=== PATIENT | female | born 1950 | race Caucasian/White ===

== ENCOUNTER 2017-04-05 12:52 | Inpatient (IN) | payer BC, OTHER ==
[~2017-04-05] VITALS: Ht 162.6 cm; Wt 63.5 kg
[2017-04-05] MEDS ORDERED: CHOL100045 PO (17:41)
[2017-04-05] MEDS ORDERED: MONT10TA22 PO (17:41)
[2017-04-05] MEDS ORDERED: VENL150C58 PO (17:41)
[2017-04-05] MEDS ORDERED: OMEP40CA37 PO (17:41)
[2017-04-05] MEDS ORDERED: ASPI81TA31 PO (17:41)
[2017-04-05] MEDS ORDERED: ATOR20TA PO (17:41)
[2017-04-05] MEDS ORDERED: CHLO25CA10 PO (17:41)
[2017-04-05] MEDS ORDERED: TRIA1CAP6 PO (17:41)
[2017-04-05] MEDS ORDERED: VITA1TAB20 PO (17:41)
[2017-04-05] MEDS ORDERED: hydrALAZINE HCL 50 MG TABLET PO PRN (17:45)
[2017-04-05] MEDS ORDERED: diphenhydrAMINE 50 MG CAPSULE PO PRN (17:45)
[2017-04-05] MEDS ORDERED: ONDANSETRON ODT 4 MG TAB.RAPDIS SL PRN (17:45)
[2017-04-05] MEDS ORDERED: MAG HYDROX/AL HYDROX/SIMETH 30 ML LIQUID UDC PO PRN (17:45)
[2017-04-05] MEDS ORDERED: ONDANSETRON 4 MG/2 ML VIAL IM PRN (17:45)
[2017-04-05] MEDS ORDERED: ACETAMINOPHEN 325 MG TABLET PO PRN (17:45)
[2017-04-05] MEDS ORDERED: DICYCLOMINE HCL 20 MG TABLET PO PRN (17:45)
[2017-04-05] MEDS ORDERED: LORAZEPAM 2 MG/1 ML VIAL IM PRN (17:45)
[2017-04-05] MEDS ORDERED: CLONIDINE HCL 0.1 MG TABLET PO PRN (17:45)
[2017-04-05] MEDS ORDERED: MIRALAX 17 GM POWD.PACK PO PRN (17:45)
[2017-04-05] MEDS ORDERED: MAGNESIUM HYDROXIDE 30 ML LIQUID UDC PO PRN (17:45)
[2017-04-05] MEDS ORDERED: LORAZEPAM 1 MG TABLET PO PRN ×2 (17:45)
[2017-04-05] MEDS ORDERED: LOPERAMIDE HCL 2 MG CAPSULE PO PRN ×2 (17:45)
[2017-04-05] MEDS ORDERED: MILK175C4 PO (17:50)
[2017-04-05] MEDS ORDERED: AMLO5TAB4 PO (17:50)
[2017-04-05] MEDS ORDERED: BIFI4CAP PO (17:50)
[2017-04-05] MEDS ORDERED: CEPH500T PO (17:50)
[2017-04-05] MEDS ORDERED: THIAMINE HCL 200 MG/2 ML VIAL IM ONE (19:00)
[2017-04-05 20:15] VITALS: BP 126/82
[2017-04-05] MEDS: GABAPENTIN 300 MG CAPSULE PO SCH (20:20)
[2017-04-05] MEDS: ATORVASTATIN 20 MG TABLET PO SCH (20:20)
[2017-04-05] MEDS: IBUPROFEN 600 MG TABLET PO PRN (20:20)
[2017-04-05] MEDS: MONTELUKAST SODIUM 10 MG TABLET PO SCH (20:20)
[2017-04-05] MEDS ORDERED: LORAZEPAM 1 MG TABLET PO SCH (21:00)
[2017-04-05 21:43] LABS: *URINE HCG, QUAL NEGATIVE (NEGATIVE)
[2017-04-05 21:56] LABS: *AMPHETAMINE, URINE NEGATIVE (NEGATIVE); *BARBITURATE, URINE NEGATIVE (NEGATIVE); *CANNABINOID, URINE NEGATIVE (NEGATIVE); *COCCAINE, URINE NEGATIVE (NEGATIVE); *OPIATE, URINE NEGATIVE (NEGATIVE); *PHENCYCLIDINE SCREEN,URINE NEGATIVE (NEGATIVE)
[2017-04-05 23:23] LABS: BASOPHILS # (AUTO) 0.1 K/uL (0.0-8.0); BASOPHILS % (AUTO) 1.9 % (0.0-2.0); EOSINOPHILS # (AUTO) 0.2 K/uL (0.0-0.7); EOSINOPHILS % (AUTO) 3.5 % (0.0-7.0); HEMATOCRIT 36.3 % (31.2-41.9); HEMOGLOBIN 12.9 g/dL (10.9-14.3); LYMPHOCYTES % (AUTO) 40.8 % (20.5-51.5); MEAN CORPUSCULAR HEMOGLOBIN 32.8 uug (24.7-32.8); MEAN CORPUSCULAR HGB CONC 36 g/dL (32.3-35.6); MEAN CORPUSCULAR VOLUME 92.2 fL (75.5-95.3); MONOCYTES # (AUTO) 0.6 K/uL (2.0-10.0); MONOCYTES % (AUTO) 11.3 % (0.0-11.0); NEUTROPHILS # (AUTO) 2.1 K/uL (1.8-8.9); NEUTROPHILS % (AUTO) 42.5 % (38.5-71.5); PLATELET COUNT (AUTO) 266 K/uL (179-408); RED BLOOD CELL COUNT(AUTO) 3.93 MIL/uL (3.63-4.92)
[2017-04-05 23:40] LABS: ALANINE AMINOTRANSFERASE 31 U/L (14-59); ALKALINE PHOSPHATASE 64 U/L (50-136); AMYLASE 53 U/L (25-115); ASPARTATE AMINOTRANSFERASE 33 U/L (15-37); BILIRUBIN,TOTAL 0.5 mg/dL (0.2-1.0); CARBON DIOXIDE 31 mmol/L (21-32); CHLORIDE 92 mmol/L (98-107); CREATININE 0.7 mg/dL (0.6-1.3); GLUCOSE 117 mg/dL (74-106); MAGNESIUM 1.4 mg/dL (1.8-2.4); POTASSIUM 3.3 mmol/L (3.5-5.1); TOTAL PROTEIN, SERUM 6.9 g/dL (6.4-8.2); UREA NITROGEN, BLOOD 8 mg/dL (7-18)
[2017-04-05 23:52] LABS: THYROID STIMULATING HORMONE 2.121 mIU/mL (0.358-3.740)
[2017-04-05 23:55] LABS: ETHANOL < 3 MG/DL (0-0)
[2017-04-06 00:52] VITALS: BP 121/74
[2017-04-06 04:11] VITALS: BP 118/71
[2017-04-06 08:00] VITALS: BP 112/73
[2017-04-06] MEDS: LORAZEPAM 1 MG TABLET PO SCH ×3 (08:37→20:57)
[2017-04-06] MEDS: FOLIC ACID 1 MG TABLET PO SCH (08:37)
[2017-04-06] MEDS: GABAPENTIN 300 MG CAPSULE PO SCH ×2 (08:37→20:57)
[2017-04-06] MEDS: MULTIVITAMINS,THERAPEUTIC TABLET PO SCH (08:38)
[2017-04-06] MEDS: THIAMINE HCL 100 MG TABLET PO SCH (08:38)
[2017-04-06] MEDS: ASPIRIN 81 MG TAB.CHEW PO SCH (08:38)
[2017-04-06] MEDS: TRIAMTERENE PO SCH (08:39)
[2017-04-06] MEDS: OMEPRAZOLE 40MG PO SCH (08:39)
[2017-04-06] MEDS: HCTZ PO SCH (08:39)
[2017-04-06] MEDS: AMLODIPINE 5 MG TABLET PO SCH (08:39)
[2017-04-06] MEDS ORDERED: MAGNESIUM OXIDE 400 MG TABLET PO ONE (09:00)
[2017-04-06] MEDS ORDERED: POTASSIUM CHLORIDE 20 MEQ TAB.PRT.SR PO ONE (09:00)
[2017-04-06] MEDS ORDERED: TUBERCULIN,PURIF.PROT.DERIV. 5 TU/0.1 ML TEST ID ONE (09:00)
[2017-04-06 12:00] VITALS: BP 115/74
[2017-04-06 16:00] VITALS: BP 123/77
[2017-04-06] MEDS: VENLAFAXINE XR 150 MG CAP.SR.24H PO SCH (16:35)
[2017-04-06] MEDS: IBUPROFEN 600 MG TABLET PO PRN (16:38)
[2017-04-06 20:28] VITALS: BP 139/90
[2017-04-06] MEDS: MONTELUKAST SODIUM 10 MG TABLET PO SCH (20:57)
[2017-04-06] MEDS: ATORVASTATIN 20 MG TABLET PO SCH (20:57)
[2017-04-07] MEDS: IBUPROFEN 600 MG TABLET PO PRN ×2 (00:10→08:56)
[2017-04-07 00:53] VITALS: BP 131/81
[2017-04-07 04:42] VITALS: BP 127/74
[2017-04-07 08:00] VITALS: BP 128/78
[2017-04-07 08:06] LABS: HEPATITIS B SURFACE AG Negative (Negative)
[2017-04-07] MEDS: VENLAFAXINE XR 150 MG CAP.SR.24H PO SCH (08:55)
[2017-04-07] MEDS: GABAPENTIN 300 MG CAPSULE PO SCH ×2 (08:55→20:17)
[2017-04-07] MEDS: LORAZEPAM 1 MG TABLET PO SCH ×2 (08:55→13:05)
[2017-04-07] MEDS: HCTZ PO SCH (08:55)
[2017-04-07] MEDS: ASPIRIN 81 MG TAB.CHEW PO SCH (08:55)
[2017-04-07] MEDS: TRIAMTERENE PO SCH (08:55)
[2017-04-07] MEDS: FOLIC ACID 1 MG TABLET PO SCH (08:55)
[2017-04-07] MEDS: OMEPRAZOLE 40MG PO SCH (08:55)
[2017-04-07] MEDS: MULTIVITAMINS,THERAPEUTIC TABLET PO SCH (08:56)
[2017-04-07] MEDS: AMLODIPINE 5 MG TABLET PO SCH (08:58)
[2017-04-07] MEDS: THIAMINE HCL 100 MG TABLET PO SCH (09:00)
[2017-04-07 09:25] LABS: CREATININE 0.7 mg/dL (0.6-1.3); MAGNESIUM 1.5 mg/dL (1.8-2.4); PHOSPHOROUS 4.4 mg/dL (2.5-4.9); POTASSIUM 3.8 mmol/L (3.5-5.1)
[2017-04-07 12:00] VITALS: BP 144/91
[2017-04-07 16:00] VITALS: BP 143/82
[2017-04-07] MEDS ORDERED: LORAZEPAM 1 MG TABLET PO SCH ×2 (17:00→21:00)
[2017-04-07] MEDS: ATORVASTATIN 20 MG TABLET PO SCH (20:17)
[2017-04-07] MEDS: ASPIRIN/ACETAMINOPHEN/CAFFEINE TABLET PO PRN (20:17)
[2017-04-07] MEDS: MONTELUKAST SODIUM 10 MG TABLET PO SCH (20:17)
[2017-04-07 20:19] VITALS: BP 141/81
[2017-04-07] MEDS ORDERED: MAGNESIUM OXIDE 400 MG TABLET PO ONE (21:00)
[2017-04-07] MEDS ORDERED: POTASSIUM CHLORIDE 10 MEQ CAPSULE.SA PO ONE (21:00)
[2017-04-08] VITALS: BP 130/78
[2017-04-08 04:00] VITALS: BP 125/75
[2017-04-08 08:00] VITALS: BP 121/72
[2017-04-08] MEDS: ASPIRIN 81 MG TAB.CHEW PO SCH (09:50)
[2017-04-08] MEDS: FOLIC ACID 1 MG TABLET PO SCH (09:51)
[2017-04-08] MEDS: LORAZEPAM 1 MG TABLET PO SCH ×3 (09:51→20:27)
[2017-04-08] MEDS: THIAMINE HCL 100 MG TABLET PO SCH (09:51)
[2017-04-08] MEDS: GABAPENTIN 300 MG CAPSULE PO SCH ×3 (09:51→20:26)
[2017-04-08] MEDS: MULTIVITAMINS,THERAPEUTIC TABLET PO SCH (09:51)
[2017-04-08] MEDS: AMLODIPINE 5 MG TABLET PO SCH (09:52)
[2017-04-08] MEDS: VENLAFAXINE XR 150 MG CAP.SR.24H PO SCH (09:52)
[2017-04-08] MEDS: TRIAMTERENE PO SCH (09:56)
[2017-04-08] MEDS: OMEPRAZOLE 40MG PO SCH (09:56)
[2017-04-08] MEDS: HCTZ PO SCH (09:56)
[2017-04-08 12:00] VITALS: BP 118/84
[2017-04-08 16:00] VITALS: BP 137/84
[2017-04-08 20:00] VITALS: BP 117/77
[2017-04-08] MEDS: ATORVASTATIN 20 MG TABLET PO SCH (20:26)
[2017-04-08] MEDS: MONTELUKAST SODIUM 10 MG TABLET PO SCH (20:27)
[2017-04-08] MEDS: ASPIRIN/ACETAMINOPHEN/CAFFEINE TABLET PO PRN (20:27)
[2017-04-09] VITALS: BP 128/75
[2017-04-09 04:00] VITALS: BP 118/76
[2017-04-09 08:00] VITALS: BP 120/72
[2017-04-09] MEDS ORDERED: LORAZEPAM 1 MG TABLET PO SCH ×2 (09:00)
[2017-04-09] MEDS: GABAPENTIN 300 MG CAPSULE PO SCH ×3 (09:07→20:35)
[2017-04-09] MEDS: HCTZ PO SCH (09:07)
[2017-04-09] MEDS: OMEPRAZOLE 40MG PO SCH (09:07)
[2017-04-09] MEDS: FOLIC ACID 1 MG TABLET PO SCH (09:07)
[2017-04-09] MEDS: TRIAMTERENE PO SCH (09:07)
[2017-04-09] MEDS: MULTIVITAMINS,THERAPEUTIC TABLET PO SCH (09:08)
[2017-04-09] MEDS: ASPIRIN 81 MG TAB.CHEW PO SCH (09:08)
[2017-04-09] MEDS: AMLODIPINE 5 MG TABLET PO SCH (09:08)
[2017-04-09] MEDS: VENLAFAXINE XR 150 MG CAP.SR.24H PO SCH (09:08)
[2017-04-09] MEDS: THIAMINE HCL 100 MG TABLET PO SCH (09:09)
[2017-04-09 12:35] VITALS: BP 116/71
[2017-04-09] MEDS ORDERED: GABA-534 PO (15:46)
[2017-04-09 16:00] VITALS: BP 121/83
[2017-04-09 20:00] VITALS: BP 127/79
[2017-04-09] MEDS: ATORVASTATIN 20 MG TABLET PO SCH (20:35)
[2017-04-09] MEDS: MONTELUKAST SODIUM 10 MG TABLET PO SCH (20:35)
[2017-04-09] MEDS: ASPIRIN/ACETAMINOPHEN/CAFFEINE TABLET PO PRN (20:35)
[2017-04-10 08:24] VITALS: BP 113/65
[2017-04-10] MEDS: MULTIVITAMINS,THERAPEUTIC TABLET PO SCH (08:25)
[2017-04-10] MEDS: GABAPENTIN 300 MG CAPSULE PO SCH (08:25)
[2017-04-10] MEDS: FOLIC ACID 1 MG TABLET PO SCH (08:26)
[2017-04-10] MEDS: ASPIRIN 81 MG TAB.CHEW PO SCH (08:26)
[2017-04-10] MEDS: THIAMINE HCL 100 MG TABLET PO SCH (08:26)
[2017-04-10] MEDS: HCTZ PO SCH (08:26)
[2017-04-10] MEDS: TRIAMTERENE PO SCH (08:26)
[2017-04-10] MEDS: OMEPRAZOLE 40MG PO SCH (08:26)
[2017-04-10] MEDS: AMLODIPINE 5 MG TABLET PO SCH (08:26)
[2017-04-10] MEDS: VENLAFAXINE XR 150 MG CAP.SR.24H PO SCH (08:26)
[2017-04-10] MEDS ORDERED: LORAZEPAM 1 MG TABLET PO SCH (09:00)
[2017-04-10 12:35] VITALS: BP 113/65
== END 2017-04-10 13:17 | disposition other institution (70) | DRG 895 ==
LOC: SRC 16:37
PROVIDERS: ADMIT Internal Medicine; ATTEND Internal Medicine
PROC: HZ2ZZZZ Detoxification Services for Substance Abuse Treatment (ICD-10-PCS; principal; 2017-04-05)
PROC: HZ41ZZZ Group Counseling for Substance Abuse Treatment, Behavioral (ICD-10-PCS; 2017-04-06)
PROC: HZ31ZZZ Individual Counseling for Substance Abuse Treatment, Behavioral (ICD-10-PCS; 2017-04-08)
DX: F10.230 Alcohol dependence with withdrawal, uncomplicated (principal); E83.42 Hypomagnesemia; I15.9 Secondary hypertension, unspecified; E87.1 Hypo-osmolality and hyponatremia; K70.0 Alcoholic fatty liver; Y90.0 Blood alcohol level of less than 20 mg/100 ml; Z81.1 Family history of alcohol abuse and dependence; F13.90 Sedative, hypnotic, or anxiolytic use, unspecified, uncomplicated; G47.00 Insomnia, unspecified; J30.2 Other seasonal allergic rhinitis; Z91.89 Other specified personal risk factors, not elsewhere classified; K21.9 Gastro-esophageal reflux disease without esophagitis; Z82.3 Family history of stroke; Z82.49 Family history of ischemic heart disease and other diseases of the circulatory system; Z80.1 Family history of malignant neoplasm of trachea, bronchus and lung; Z86.018 Personal history of other benign neoplasm; E78.5 Hyperlipidemia, unspecified; Z79.82 Long term (current) use of aspirin; Z79.899 Other long term (current) drug therapy; Z90.710 Acquired absence of both cervix and uterus; F32.9 Major depressive disorder, single episode, unspecified; F41.9 Anxiety disorder, unspecified; E87.6 Hypokalemia; E86.1 Hypovolemia; R73.9 Hyperglycemia, unspecified
CPT/HCPCS: 36415; 70030-TC; 80307; 80346; 83735; 84100; 84443; 84703; 85025; 86580; 86592; 86705; 86803; 87340; 87806; G0480; J3411